=== PATIENT | male | born 1995 | race Caucasian/White ===

== ENCOUNTER 2021-12-19 13:49 | Emergency (ER) | payer BC, SELFPAY ==
[2021-12-19 13:56] VITALS: BP 152/77; PULSE 96; RESP 18; TEMP 36.6; O2SAT 97; BMI 32.5
--- NOTE | 2021-12-19 16:30 | ED.GENADULT ---
HPI - General Adult General Chief complaint: Eye Problems Stated complaint: Red Eye, Lower back pain, Chest Tightness Time Seen by Provider: 12/19/21 14:42 Source: patient History of Present Illness HPI narrative: Patient is a 26-year-old male who noted some redness and irritation in his left eye yesterday, woke up this morning it was much more red and swollen, irritated. No eye pain, visual complaints, photophobia. He says a week ago or so he was cutting some acrylic at his job and felt like maybe something got in the medial eye, but that only lasted a few hours and then it was better. Did not have any problems for the next few days until yesterday. He does have a little bit of a sore throat, some congestion, some pain over by his left ear. He has also had a little bit of a cough. He has not run any fevers. Has had some pain for about a week or so in his right flank area when he moves. He does have somewhat of a physical job so he did not think too much of that. He has had some low back pain for quite some time and does not think that is related. Has not had any shortness of breath, pain in his back is not pleuritic. Related Data Home Medications Medication Instructions Recorded Confirmed dextroamphetamine-amphetamine ER 30 mg PO DAILY 12/19/21 12/19/21 30 mg 24hr capsule,extend release (Adderall XR) Previous Rx's Medication Instructions Recorded tobramycin 0.3 % eye drops 2 drp ophthalmic (eye-left) Q4H #5 12/19/21 mL Allergies Allergy/AdvReac Type Severity Reaction Status Date / Time No Known Drug Allergies Allergy Verified 12/19/21 14:01 Review of Systems Status of ROS: Reports: 10 or more systems reviewed and unremarkable except as noted in History and below [facility] Medical History No significant past medical history Social History Smoking Status: Unknown if ever smoked Non-prescribed substance use: denies use Exam Narrative: Exam Narrative: Vital signs as noted above. In general, an alert, well-appearing patient. Head: Normocephalic, atraumatic. Eyes: Pupils are equal reactive. Extraocular movements are full. Conjunctivae on the left is significantly injected, there is some mild edema of the lid. No significant surrounding erythema. ENT: Mucous membranes are moist. Throat is normal. Neck: Supple without lymphadenopathy. Heart: Regular rate and rhythm. No murmur or rub. Lungs: Clear bilaterally. No increased work of breathing, crackles or wheezes. Back: He has reproducible tenderness in the right flank area, he has an area of muscle tenderness without swelling or redness. Neurologic: Patient is alert and oriented to person and place. Speech is fluent. Face is symmetric. Moves all extremities equally. Affect: Normal. Skin: Warm and dry. Well perfused. Const: Vital Signs, click to edit/add: Vital Signs - 24 hr 12/19/21 13:56 Temperature 97.9 F Pulse Rate [Pulse Oximeter] 96 Respiratory Rate 18 Blood Pressure [Ri ght Upper Arm] 152/77 H Pulse Oximetry 97 Oxygen Delivery Me thod Room Air Course Course Hospital Course: I did do a fluorescein exam with tetracaine. I do not see any evidence of foreign body or corneal abrasion. I think the episode with the acrylic a week ago is probably not related to today's symptoms. He does seem to have some upper respiratory symptoms and I think today likely represents simply conjunctivitis. He does have a very injected eye and going to cover him with some tobramycin. Right now he does not have any evidence of otitis, but suggested to him that if that pain is worsening that she be rechecked. The pain in his right flank area seems to be very muscular, his lungs are clear, oxygen saturations are normal. We talked about doing a chest x-ray but he would like to wait on that which I think is reasonable. We had planned to do a COVID test, but I did not order that and he inadvertently left without that being done. We did talk about doing that testing so hopefully he will do that at home. We discussed returning for any worsening respiratory symptoms, high fever etc.. If the eye is not improving over the next 1-2 days, follow up with Ophthalmology, sooner for worsening symptoms such as photophobia, visual changes, severe pain. Vital Signs Vital signs: Initial Vital Signs Temperature 97.9 F 12/19/21 13:56 Temperature Source Temporal Artery Scan 12/19/21 13:56 Pulse Rate 96 12/19/21 13:56 Respiratory Rate 18 12/19/21 13:56 Blood Pressure 152/77 H 12/19/21 13:56 Blood Pressure Mean 102 12/19/21 13:56 Blood Pressure Position Sitting 12/19/21 13:56 Pulse Oximetry 97 12/19/21 13:56 Oxygen Delivery Method 12/19/21 13:56 Vital Signs Temperature 97.9 F 12/19/21 13:56 Pulse Rate 96 12/19/21 13:56 Respiratory Rate 18 12/19/21 13:56 Blood Pressure 152/77 H 12/19/21 13:56 Pulse Oximetry 97 12/19/21 13:56 Oxygen Delivery Method 12/19/21 13:56 Temperature 97.9 F 12/19/21 13:56 Pulse Rate 96 12/19/21 13:56 Respiratory Rate 18 12/19/21 13:56 Blood Pressure 152/77 H 12/19/21 13:56 Pulse Oximetry 97 12/19/21 13:56 Oxygen Delivery Method 12/19/21 13:56 Discharge Plan Discharge Clinical Impression: Conjunctivitis Patient Disposition: Home, Self-Care Condition: Stable Instructions: Conjunctivitis (ED) Additional Instructions: Eyedrops as prescribed. Motrin or Tylenol as needed. If you develop worsening symptoms, shortness of breath, high fever, severe pain, return for re-evaluation. Recheck with eye doctor if eye is not improving over the next couple of days, or if you develop new symptoms such as visual problems, light sensitivity, etc.. Prescriptions: New tobramycin 0.3 % drops 2 drp ophthalmic (eye-left) Q4H Qty: 5 0RF No Action dextroamphetamine-amphetamine [Adderall XR] 30 mg capsule,extended release 24hr 30 mg PO DAILY Follow Up/Referrals: Provider,Not a Local [Primary Care Provider] - Stand Alone Forms: [employer] Info Instructions
== END 2021-12-19 15:36 | disposition home or self-care (01) ==
PROVIDERS: Emergency Provider Emergency Medicine
DX: H10.9 Unspecified conjunctivitis (principal)
CPT/HCPCS: 99282; 99283

== ENCOUNTER 2023-01-27 17:02 | Emergency (ER) | payer BC, SELFPAY ==
[2023-01-27 17:14] VITALS: BP 158/107; PULSE 89; RESP 18; TEMP 36.8; O2SAT 98; BMI 34.4
--- NOTE | 2023-01-27 17:21 | ED_ITS ---
HPI - General Adult General Time Seen by Provider: 17:21 Date Seen: 01/27/23 Chief complaint: Sore Throat Stated complaint: infected tonsil Time Seen by Provider: 01/27/23 17:17 Source: patient and RN notes reviewed Mode of arrival: ambulatory Limitations: no limitations History of Present Illness HPI narrative: This 27-year-old male is coming in with swollen right tonsil, some soreness to it and difficulty with swallowing and eating at times to the swelling. He states it has been present for maybe a month now. The left side is maybe a little sore today. There has been no fevers, no night sweats. He notes when this 1st started to bother him he had a swollen lymph node above his right ear and in front of his right ear, this has went down. He notes no stomach symptoms with this, no cough. He is feeling a little left otalgia now but thinks it might be referred pain. Patient feels that the right side is maybe worsening, left side is becoming painful over the last few days. Related Data Home Medications Medication Instructions Recorded Confirmed dextroamphetamine-amphetamine ER 30 mg PO DAILY 12/19/21 12/19/21 30 mg 24hr capsule,extend release (Adderall XR) Previous Rx's Medication Instructions Recorded tobramycin 0.3 % eye drops 2 drp ophthalmic (eye-left) Q4H #5 12/19/21 mL amoxicillin 875 mg-potassium 1 tab PO BID #20 tabs 01/27/23 clavulanate 125 mg tablet Allergies Allergy/AdvReac Type Severity Reaction Status Date / Time No Known Drug Allergies Allergy Verified 12/19/21 14:01 Review of Systems Narrative: As per HPI. [facility] Medical History No significant past medical history Social History Smoking Status: Never smoker Do you use any of these nicotine containing products: None How often do you have a drink containing alcohol: never How often do you have six or more drinks on one occasion: Never AUDIT-C Alcohol total score: 0 Non-prescribed substance use: former substance user Exam Const: Vital Signs, click to edit/add: Vital Signs - 24 hr 01/27/23 17:14 Temperature 98.2 F Pulse Rate [Right Pulse Oximeter] 89 Respiratory Rate 18 Blood Pressure [Ri ght Upper Arm] 158/107 H Pulse Oximetry 98 Oxygen Delivery Me thod Room Air This 27-year-old male is sitting in the chair in exam room 4, is alert, interactive, no apparent distress breathing easily on room air. Speech is normal. Pupils equal round reactive, sclera clear, face atraumatic. He has no palpable lymph nodes around the ears. TMs canals are normal. Anterior nares are normal. No cervical adenopathy, no thyromegaly masses or nodules. Lips are normal, oropharynx with about a 2 to 3+ right tonsil, can see a white little tonsillar crypt on the anterior superior aspect of this. Left tonsil is not michel t swollen, maybe mild erythema to both of them, oral mucosa and soft palate otherwise normal. There is still a good oral airway. Tongue is normal, dentition is normal. Lungs are clear, good air entry with without any wheezing or crackles, no stridor. CV regular rate and rhythm no murmur, normal S1 and S2. Documenting provider has reviewed patient's vital signs: yes Course Course ED Course: Reviewed the full workup with the patient. He would like to proceed with soft tissue CT of his neck coming understands an IV will need to be established. Reviewed with him I do see what looks to be a tonsillar crypt on the right side but indeed this tonsil is quite enlarged. Will get a CBC, Monospot, strep and COVID testing on him. I am hopeful that there is not a tonsillar abscess given the chronicity of this. He may need to ultimately see ENT but based on my i nitial assessment this will likely be outpatient. Will guide therapy accordingly, patient is hemodynamically stable, managing his airway just fine. Reevaluation(s) Time of Reevaluation #1: 19:30 Reevaluation #1: Reviewed with patient that his imaging is showing tonsillitis. We reviewed his labs, those are reassuring. He still has his IV in place, will give him a dose of Unasyn 3 g prior to discharge. Will manage this outpatient as he has no complications at this point. Discussed signs and symptoms for return. He will initiate oral antibiotics tomorrow morning. Will give a dose of IV dexamethasone as he does feel definite symptoms from the swelling. Is still managing secretions, still breathing easily on room air, no stridor. Vital Signs Vital signs: Initial Vital Signs Temperature 98.2 F 01/27/23 17:14 Temperature Source Temporal Artery Scan 01/27/23 17:14 Pulse Rate 89 01/27/23 17:14 Respiratory Rate 18 01/27/23 17:14 Blood Pressure 158/107 H 01/27/23 17:14 Blood Pressure Mean 124 H 01/27/23 17:14 Blood Pressure Position Sitting 01/27/23 17:14 Pulse Oximetry 98 01/27/23 17:14 Oxygen Delivery Method Room Air 01/27/23 17:14 Vital Signs Temperature 98.2 F 01/27/23 17:14 Pulse Rate 89 01/27/23 17:14 Respiratory Rate 18 01/27/23 17:14 Blood Pressure 158/107 H 01/27/23 17:14 Pulse Oximetry 98 01/27/23 17:14 Oxygen Delivery Method Room Air 01/27/23 17:14 Temperature 98.0 F 01/27/23 20:56 Pulse Rate 81 01/27/23 20:56 Respiratory Rate 18 01/27/23 20:56 Blood Pressure 118/79 01/27/23 20:56 Pulse Oximetry 96 01/27/23 20:55 Oxygen Delivery Method Room Air 01/27/23 20:55 Medications Administered Medications: Discontinued Medications Generic Name Dose Route Start Last Admin Trade Name Freq PRN Reason Stop Dose Admin Dexamethasone 10 mg 01/27/23 19:36 01/27/23 19:55 Dexamethasone 10 Mg/Ml Inj IVP 01/27/23 19:37 10 mg ONCE ONE Administration Ampicillin Sodium/Sulbactam 100 mls @ 200 mls/hr 01/27/23 19:30 01/27/23 20:54 Sodium 3 gm/ Sodium Chloride IVPB 01/27/23 19:31 Infused ONCE ONE Infusion Medical Decision Making Lab Data Lab results reviewed: Yes I reviewed the patient's lab results Labs: Lab Results 01/27/23 01/27/23 Range/Units 17:28 17:30 WBC 8.82 (4.50-11.00) K/uL RBC 5.64 (4.30-5.90) m/uL Hgb 16.5 (13.5-17.5) gm/dL Hct 48.2 (37.0-53.0) % MCV 86 (80-100) fL MCH 29 (26-34) pg MCHC 34 (32-36) gm/dL RDW Coeff of Day 12.2 (11.5-15.5) % Plt Count 308 (140-440) K/uL Neut % (Auto) 59.4 (42.0-72.0) % Lymph % (Auto) 29.8 (20-44) % [place] % (Auto) 9.1 (0.0-11.0) % Eos % (Auto) 1.1 (0.0-7.0) % Baso % (Auto) 0.3 (0.0-3.0) % Neut # (Auto) 5.23 (1.7-7.0) K/uL Lymph # (Auto) 2.63 (0.90-2.90) K/uL [place] # (Auto) 0.80 (0.00-0.90) K/UL Eos # (Auto) 0.10 (0.00-0.50) K/uL Baso # (Auto) 0.03 (0.00-0.30) K/uL Abs Immat Gran (auto) 0.03 (0.00-0.30) K/uL Imm/Tot Granulo (auto) 0.3 % SARS-CoV-2 (PCR) Negative SARS-CoV-2 (Negative) Monoscreen Negative (Negative) Group A Strep DNA NOT DETECTED (Not Detectd) Imaging Data CT- Other: Attestation: I have reviewed the pertinent imaging results. Radiologist's impression: Patient: AMIE BERNAL Facility:?[facility] Patient ID:?[id number] Site Patient ID:?[id number]. Site :?[id number] Study:?CT ST Neck W/ 100CC [id number] 6:08:59 PM Ordering Physician:Jacob Galvez Final Report: INDICATION: Swollen tonsil. Sore throat. TECHNIQUE: CT of the neck with 100 cc Isovue 370 iodinated contrast agent. Coronal and sagittal reconstructions are included. COMPARISON: None. FINDINGS: Relatively symmetric prominence and hyperenhancement involving the palatine tonsils, consistent with tonsillitis. Localized partial effacement of the or pharyngeal airway. No tonsillar or peritonsillar abscess. The oral cavity, nasopharyngeal, oropharyngeal and hypopharyngeal spaces are normal. The supraglottic, glottic and infraglottic larynx are normal. The airway including the trachea is normal and is patent. The parotid glands, submandibular and sublingual glands are normal in appearance. The thyroid gland is normal in appearance. The vascular structures opacify normally with contrast material. No suspicious lytic or blastic osseous lesions. Scattered cervical spondylosis without significant bony neural foraminal stenosis. No periapical dental disease. Visualized paranasal sinuses and mastoid air cells are clear. Visualized orbital and intracranial contents are normal. Supraclavicular regions, mediastinum and soft tissues of the imaged chest wall are normal. Visualized portions of the upper lungs are clear. IMPRESSION: 1. Findings compatible with tonsillitis. Localized partial effacement of the pharyngeal airway. No tonsillar or peritonsillar abscess. Please note that all CT scans at this facility use dose modulation, iterative reconstruction, and/or weight-based dosing when appropriate to reduce radiation dose to as low as reasonably achievable. Dictated by Avelino Ny MD @ 01/27/2023 6:46:15 PM (Electronic Signature) Critical Care Time Critical Care Time Critical Care Time: No Discharge Plan Discharge Clinical Impression: Acute tonsillitis Patient Disposition: Home, Self-Care Condition: Stable Instructions: Tonsillitis (ED) Additional Instructions: Start oral antibiotics tomorrow and take as prescribed. Try to drink small frequent sips of fluids to stay hydrated, soft foods maybe more tolerable until the swelling is improving. If you feel you are worsening, having increasing pain, increased difficulty swallowing or breathing, develops fevers or feeling worse, do need to have re-evaluation. If you are having prolonged issues with tonsillitis or if it is recurrent, may need to see ENT in consultation. Activity Level: Activity as Tolerated Prescriptions: New amoxicillin-pot clavulanate 875-125 mg tablet 1 tab PO BID Qty: 20 0RF No Action dextroamphetamine-amphetamine [Adderall XR] 30 mg capsule,extended release 24hr 30 mg PO DAILY tobramycin 0.3 % drops 2 drp ophthalmic (eye-left) Q4H Qty: 5 0RF Follow Up/Referrals: Provider,Not a Local [Primary Care Provider] - Stand Alone Forms: [employer] Info Instructions
--- NOTE | 2023-01-27 17:27 | CRLHL7_ITS ---
For Patients: As a result of the Century Cures Act, medical imaging exams and procedure reports are released immediately into your electronic medical record. You may view this report before your referring provider. If you have questions, please contact your health care provider. INDICATION: Swollen tonsil. Sore throat. TECHNIQUE: CT of the neck with 100 cc Isovue 370 iodinated contrast agent. Coronal and sagittal reconstructions are included. COMPARISON: None. FINDINGS: Relatively symmetric prominence and hyperenhancement involving the palatine tonsils, consistent with tonsillitis. Localized partial effacement of the or pharyngeal airway. No tonsillar or peritonsillar abscess. The oral cavity, nasopharyngeal, oropharyngeal and hypopharyngeal spaces are normal. The supraglottic, glottic and infraglottic larynx are normal. The airway including the trachea is normal and is patent. The parotid glands, submandibular and sublingual glands are normal in appearance. The thyroid gland is normal in appearance. The vascular structures opacify normally with contrast material. No suspicious lytic or blastic osseous lesions. Scattered cervical spondylosis without significant bony neural foraminal stenosis. No periapical dental disease. Visualized paranasal sinuses and mastoid air cells are clear. Visualized orbital and intracranial contents are normal. Supraclavicular regions, mediastinum and soft tissues of the imaged chest wall are normal. Visualized portions of the upper lungs are clear. IMPRESSION: 1. Findings compatible with tonsillitis. Localized partial effacement of the pharyngeal airway. No tonsillar or peritonsillar abscess. Please note that all CT scans at this facility use dose modulation, iterative reconstruction, and/or weight-based dosing when appropriate to reduce radiation dose to as low as reasonably achievable. Dictated by Avelino Ny MD @ 01/27/2023 6:46:15 PM (Electronically Signed)
[2023-01-27 18:06] LABS: Basophils Absolute Auto 0.03 K/uL (0.00-0.30); Basophils Percent Auto 0.3 % (0.0-3.0); Eosinophils Percent Auto 1.1 % (0.0-7.0); Hematocrit 48.2 % (37.0-53.0); Hemoglobin* 16.5 gm/dL (13.5-17.5); Immature Granulocytes Abs Auto 0.03 K/uL (0.00-0.30); Immature Granulocytes Pct Auto 0.3 %; Lymphocytes Absolute Auto 2.63 K/uL (0.90-2.90); Lymphocytes Percent Auto 29.8 % (20-44); Mean Corpuscular HGB Conc 34 gm/dL (32-36); Mean Corpuscular Hemoglobin 29 pg (26-34); Mean Corpuscular Volume 86 fL (80-100); Monocytes Percent Auto 9.1 % (0.0-11.0); Neutrophils Absolute Auto 5.23 K/uL (1.7-7.0); Neutrophils Percent Auto 59.4 % (42.0-72.0); Platelet Count* 308 K/uL (140-440); RDW Coefficient of Variation % 12.2 % (11.5-15.5); Red Blood Count 5.64 m/uL (4.30-5.90); White Blood Count* 8.82 K/uL (4.50-11.00)
[2023-01-27 18:10] LABS: Slide Review Reflex No
[2023-01-27 18:18] LABS: Mono Screen* Negative (Negative)
[2023-01-27 18:46] LABS: SARS PCR* Negative SARS-CoV-2 (Negative); Strep A DNA Probe* NOT DETECTED (Not Detectd)
[2023-01-27 19:44] VITALS: BP 120/83; PULSE 85; RESP 18; O2SAT 96
[2023-01-27] MEDS: AMPICILLIN/SULBACTAM 3 GM in 0.9 % SODIUM CHLORIDE Mini-bag 100 ML IVPB (19:53)
[2023-01-27] MEDS: dexAMETHasone 10 MG/ML inj IVP (19:55)
--- NOTE | 2023-01-27 20:32 | ED.NURSE ---
pt report given off to oncoming RN
[2023-01-27 20:55] VITALS: BP 118/79; PULSE 81; RESP 18; TEMP 36.7; O2SAT 96
[2023-01-27 20:56] VITALS: BP 118/79; PULSE 81; RESP 18; TEMP 36.7
== END 2023-01-27 20:56 | disposition home or self-care (01) ==
PROVIDERS: Emergency Provider Family Medicine
DX: J03.90 Acute tonsillitis, unspecified (principal)
CPT/HCPCS: 36415; 70491; 85025; 86308; 87635; 87651; 96365; 96375; 99284; 99285; J0295; J1100; Q9967